=== PATIENT | male | born 1990 | race Caucasian/White ===

== ENCOUNTER 2016-11-05 18:35 | Emergency (ER) | payer OTHER ==
--- NOTE | 2016-11-06 06:22 | ED NURSING NOTES ---
Clinical Report - Nurses [place] [address] [place] [address] 11/05/2016 18:38 Patient: JOHN LIU DISPOSITION / DISCHARGE Departure time: 1937. The patient left the Emergency Department before triage. ( emissions testing technician brought me the chart while I was triaging another pt and told me that registration called and told him that the patient had left.). --06:21 Bang Basilio R.N. Locked/Released at 11/06/2016 6:22 by Bang Basilio R.N.
--- NOTE | 2016-11-06 06:22 | ED NURSING NOTES ---
Clinical Report - Nurses [place] [address] [place] [address] 11/05/2016 18:38 Patient: JOHN LIU DISPOSITION / DISCHARGE Departure time: 1937. The patient left the Emergency Department before triage. ( certified endoscopy technician brought me the chart while I was triaging another pt and told me that registration called and told him that the patient had left.). --06:21 Bang Basilio R.N. Locked/Released at 11/06/2016 6:22 by Bang Basilio R.N.
== END 2016-11-05 19:38 | disposition home or self-care (01) ==
LOC: ED SRH 18:35
DX: Z53.21 Procedure and treatment not carried out due to patient leaving prior to being seen by health care provider (principal)

== ENCOUNTER 2017-01-16 16:05 | Emergency (ER) | payer OTHER ==
--- NOTE | 2017-01-16 16:34 | ED NURSING NOTES ---
Clinical Report - Nurses [facility] [address] [place] [address] 01/16/2017 16:07 Patient: JOHN LIU TRIAGE Triage time 16:13. Acuity: LEVEL 5. Chief Complaint: TOOTHACHE and CHIPPED TOOTH. Alert. --16:18 Jaqueline Hernandez R.N. 16:13 01/16/17. BP: 135/77. HR: 104. RR: 18. O2 saturation: 98%. --16:18 Jaqueline Hernandez R.N. 16:20 01/16/17. Temp: 98.5 F. Pain level now: 08/09. --16:20 Jaqueline Hernandez R.N. Chief Complaint: (Pt stated that he had a toothache 3 months ago and had a round of antibiotics, then a week ago, it flared up again. He plans on having the tooth pulled.). --16:33 Jaqueline Hernandez R.N. Weight: 72.5 kg stated. Height/Length: 66 inches Per Patient. BMI: 25.8. --16:18 Jaqueline Hernandez R.N. Medications Ibuprofen Oral 1200 mg 5 times a day. --16:15 Jaqueline Hernandez R.N. Allergies No Known Drug Allergy. --16:16 Jaqueline Hernandez R.N. History Arrived by private vehicle. Historian: patient. Primary physician ([facility]). Onset. (1 week ago, finished Amoxicillin). SOCIAL HX: Heavy tobacco smoker (cigarette)- 1 pack per day. Occasional alcohol use. No drug use. --16:18 Jaqueline Hernandez R.N. PROBLEMS: Crush Injury, Upper Extremity. Contusion. Laceration. Pityriasis Rosea. Lifestyle / Substance Problems. Pharyngitis. Sinusitis. Skin Avulsion. Sprain. PTSD. --16:17 Jaqueline Hernandez R.N. ADDITIONAL SURGERIES: Hand. Knee Surgery. Shoulder Surgery. --16:17 Jaqueline Hernandez R.N. Interventions ID band on patient. To room. --16:18 Jaqueline Hernandez R.N. PHYSICAL ASSESSMENT 16:18 01/16/17. GENERAL / NEURO / PSYCH: Alert. Oriented X 4. --16:18 Jaqueline Hernandez R.N. GENERAL / NEURO / PSYCH: ( Pt states it's the left lower molar, in front of wisdom tooth). --16:20 Jaqueline Hernandez R.N. NURSING PROGRESS NOTES 16:21 01/16/17. Patient identifiers checked. Call light placed in reach. Bed placed in lowest position. Brakes of bed on. Patient ready for evaluation- chart flagged. --16:21 Jaqueline Hernandez R.N. DISPOSITION / DISCHARGE Departure time: 1640. Condition at departure: improved. ( VSs deferred). No learning barriers present. Discharge instructions provided and reviewed with the patient. Reviewed medication(s) information. Prescription(s) given to the patient. Reviewed referral to a dentist. Verbalized understanding. Written instructions provided. The patient was discharged home. He left the Emergency Department ambulatory and via private vehicle. FALL RISK ASSESSMENT: Fall risk assessment completed. No fall risk identified. --17:05 Jaqueline Hernandez R.N. Locked/Released at 01/19/2017 17:05 by Jaqueline Hernandez R.N.
--- NOTE | 2017-01-16 16:34 | ED NURSING NOTES ---
Clinical Report - Nurses [facility] [address] [place] [address] 01/16/2017 16:07 Patient: JOHN LIU TRIAGE Triage time 16:13. Acuity: LEVEL 5. Chief Complaint: TOOTHACHE and CHIPPED TOOTH. Alert. --16:18 Jaqueline Hernandez R.N. 16:13 01/16/17. BP: 135/77. HR: 104. RR: 18. O2 saturation: 98%. --16:18 Jaqueline Hernandez R.N. 16:20 01/16/17. Temp: 98.5 F. Pain level now: 08/09. --16:20 Jaqueline Hernandez R.N. Chief Complaint: (Pt stated that he had a toothache 3 months ago and had a round of antibiotics, then a week ago, it flared up again. He plans on having the tooth pulled.). --16:33 Jaqueline Hernandez R.N. Weight: 72.5 kg stated. Height/Length: 66 inches Per Patient. BMI: 25.8. --16:18 Jaqueline Hernandez R.N. Medications Ibuprofen Oral 1200 mg 5 times a day. --16:15 Jaqueline Heranndez R.N. Allergies No Known Drug Allergy. --16:16 Jaqueline Hernandez R.N. History Arrived by private vehicle. Historian: patient. Primary physician ([facility]). Onset. (1 week ago, finished Amoxicillin). SOCIAL HX: Heavy tobacco smoker (cigarette)- 1 pack per day. Occasional alcohol use. No drug use. --16:18 Jaqueline Hernandez R.N. PROBLEMS: Crush Injury, Upper Extremity. Contusion. Laceration. Pityriasis Rosea. Lifestyle / Substance Problems. Pharyngitis. Sinusitis. Skin Avulsion. Sprain. PTSD. --16:17 Jaqueline Hernandez R.N. ADDITIONAL SURGERIES: Hand. Knee Surgery. Shoulder Surgery. --16:17 Jaqueline Hernandez R.N. Interventions ID band on patient. To room. --16:18 Jaqueline Hernandez R.N. PHYSICAL ASSESSMENT 16:18 01/16/17. GENERAL / NEURO / PSYCH: Alert. Oriented X 4. --16:18 Jaqueline Hernandez R.N. GENERAL / NEURO / PSYCH: ( Pt states it's the left lower molar, in front of wisdom tooth). --16:20 Jaqueline Hernandez R.N. NURSING PROGRESS NOTES 16:21 01/16/17. Patient identifiers checked. Call light placed in reach. Bed placed in lowest position. Brakes of bed on. Patient ready for evaluation- chart flagged. --16:21 Jaqueline Hernandez R.N. DISPOSITION / DISCHARGE Departure time: 1640. Condition at departure: improved. ( VSs deferred). No learning barriers present. Discharge instructions provided and reviewed with the patient. Reviewed medication(s) information. Prescription(s) given to the patient. Reviewed referral to a dentist. Verbalized understanding. Written instructions provided. The patient was discharged home. He left the Emergency Department ambulatory and via private vehicle. FALL RISK ASSESSMENT: Fall risk assessment completed. No fall risk identified. --17:05 Jaqueline Hernandez R.N. Locked/Released at 01/19/2017 17:05 by Jaqueline Hernandez R.N.
--- NOTE | 2017-01-16 16:34 | ED CLINICAL REPORT ---
Clinical Report - Physicians/Mid Levels [facility] [address] [place] [address] 01/16/2017 16:07 Patient: JOHN LIU Time Seen: 16:13; upon arrival, initial patient contact, initial documentation, patient care assumed. Arrived- By private vehicle. Historian- patient. HISTORY OF PRESENT ILLNESS Chief Complaint: DENTAL PAIN. This started about 1 weeks ago and is still present. No sore throat, mouth sores, nasal discharge or congestion or ear pain. He has had moderate toothache involving a single tooth (left lower molar). Similar symptoms previously: Frequently, as bad. ( was on round of pcn abx about 3 mos ago for same tooth, was supposed to f/u with dentist to have dental work done, and didn't). Recent medical care: Not recently seen/assessed. REVIEW OF SYSTEMS No fever or difficulty breathing. All systems otherwise negative, except as recorded above. PAST HISTORY See nurses notes. PROBLEMS: Crush Injury, Upper Extremity. Contusion. Laceration. Pityriasis Rosea. Lifestyle / Substance Problems. Pharyngitis. Sinusitis. Skin Avulsion. Sprain. PTSD. --16:17 Jaqueline Hernandez R.N. ADDITIONAL SURGERIES: Hand. Knee Surgery. Shoulder Surgery. --16:17 Jaqueline Hernandez RToby. SOCIAL HISTORY Heavy tobacco smoker. Occasional alcohol use. No drug use. No recent travel. Is a local resident. FAMILY HISTORY Negative. ADDITIONAL NOTES The nursing notes have been reviewed with agreement regarding the chief complaint, HPI, ROS, PMH and patient medications and allergies. PHYSICAL EXAM Vital Signs: 01/16/2017 16:13 BP: 135/77. HR: 104. RR: 18. O2 saturation: 98%. Have been reviewed as normal and appear to be correct. Temperature: 98.5 oral- temperature normal. Appearance: Alert. No acute distress. Head: Normal external inspection. Eyes: Pupils equal, round and reactive to light. Conjunctivae and eyelids normal. ENT: Mild, localized dental decay (lower left second molar) (part of tooth gone and decay present). No gingival tenderness, induration, swelling or fluctuance. Ears normal. Nose normal. Trismus present. Pharynx normal. Lips normal. Gums normal. Uvula midline. Neck: Normal inspection. Trachea midline. No adenopathy. Thyroid normal. Neck supple. Respiratory: No respiratory distress. Skin: Normal skin color. No rash. Normal skin turgor. Extremities: Extremities exhibit normal ROM. Extremities nontender. Neuro: Oriented X 3. No motor deficit. No sensory deficit. PROGRESS AND PROCEDURES Course of Care: 16:34 01/16/17. pt has brief kellie, nothing alarming, see report for full details. Patient counseled in person regarding the patient's stable condition and diagnosis. Differential Diagnosis: Other possible considerations: substance abuse, dental caries, abscess, pain. Above considerations are based on history and physical exam. Differential diagnosis was discussed with patient. Disposition: Discharged home in good and unchanged condition (16:34). Condition: good and stable. CLINICAL IMPRESSION Dental caries (localized) INSTRUCTIONS Warnings: GENERAL WARNINGS: Return or contact your physician immediately if your condition worsens or changes unexpectedly, if not improving as expected, or if other problems arise. Specifically return if problem worsens. Prescription Medications: Penicillin V 500mg: take 1 tab orally every 6 hours for 10 days. Dispense forty (40). No refill Ultram 50 mg tablets: take 1-2 orally every 6 hours as needed for pain. Dispense twenty (20). No refills. Substitution is permissible. Follow-up: Follow up with a dentist in about three days even if well. Call for an appointment. Summary of care provided to patient. Understanding of the discharge instructions verbalized by patient. (Electronically signed by Adelaida Naranjo A.R.N.P. 01/17/2017 0:05)
--- NOTE | 2017-01-19 17:06 | ED MED RECONCILIATION SUMMARY ---
Patient: JOHN LIU Medication Reconciliation Report [facility] VisitID: [id number] [address] [place] [address] 26y, M Registration Date/Time: 01/16/2017 Weight: 72.5 kg Height/Length: 66 in. BMI: 25.8 ALLERGIES: No Known Drug Allergy The patient's Home Medications are listed below: THE FOLLOWING MEDICATIONS NEED TO BE RECONCILED: Ibuprofen Oral 1200 mg 5 times a day The source(s) of the original Home Medication information: Not obtained. The following Medications were given to the patient in the Emergency Department: None. The following Medications were prescribed to the patient: Penicillin V 500mg: take 1 tab orally every 6 hours for 10 days. Dispense forty (40). No refill -- Adelaida Naranjo A.R.N.P. Ultram 50 mg tablets: take 1-2 orally every 6 hours as needed for pain. Dispense twenty (20). No refills. Substitution is permissible. -- Adelaida Naranjo A.R.N.P.
--- NOTE | 2017-01-19 17:06 | ED DISCHARGE INSTRUCTIONS ---
Patient: JOHN LIU General Instructions [facility] VisitID: [id number] [place] [address] 26y, M Registration Date/Time: 01/16/2017 Dental caries (localized) INSTRUCTIONS Warnings: GENERAL WARNINGS: Return or contact your physician immediately if your condition worsens or changes unexpectedly, if not improving as expected, or if other problems arise. Specifically return if problem worsens. Prescription Medications: Penicillin V 500mg: take 1 tab orally every 6 hours for 10 days. Dispense forty (40). No refill Ultram 50 mg tablets: take 1-2 orally every 6 hours as needed for pain. Dispense twenty (20). No refills. Substitution is permissible. Follow-up: Follow up with a dentist in about three days even if well. Call for an appointment. Summary of care provided to patient. Understanding of the discharge instructions verbalized by patient. ADDITIONAL INFORMATION Dental Cavity A dental cavity is a pit or crater in the enamel surface of the tooth. This exposes the sensitive inner layer of the tooth and causes pain. If untreated, the cavity will get bigger and may cause an infection or abscess in the root of the tooth. An infection in the tooth is a much more serious problem and may require a root canal or removal of the entire tooth. The tooth pain may be made worse by drinking hot or cold fluids. It may spread from the tooth to the ear or jaw on the same side. Home Care: Avoid hot and cold foods, and liquids since your tooth may be sensitive to temperature changes. If your tooth is chipped or cracked, or if there is a large open cavity, apply OIL OF CLOVES (available vjwj-jlo-mobijks in drug stores) directly to the tooth to reduce pain. Some pharmacies carry an rsqc-vfh-tufvoiy "toothache kit." This contains oil of cloves and a paste, which can be applied over the exposed tooth to decrease sensitivity. An ice pack on your jaw over the sore area may help to reduce pain. You may use acetaminophen (Tylenol) or ibuprofen (Motrin, Advil) to control pain, unless another pain medicine was prescribed. [ NOTE: If you have liver disease or ever had a stomach ulcer, talk with your doctor before using these medicines.] If you have signs of an infection, an antibiotic will be given. Take it as directed. Follow-Up with your dentist as directed. Although your pain may go away with the treatment given, only a dentist can fully evaluate and treat this problem to prevent further tooth damage. Get Prompt Medical Attention if any of the following occur: Redness or swelling of the face Pain worsens or spreads to the neck Fever over 100.5 F (38C) Unusual drowsiness; headache or stiff neck; weakness or fainting Pus drains from the tooth or gum Difficulty swallowing or breathing Dental Pain A crack or cavity in the tooth, which exposes the sensitive inner area of the tooth can cause tooth pain. An infection in the gum or the root of the tooth can cause pain and swelling. The pain is often made worse by drinking hot or cold fluids, or biting on hard foods. Pain may spread from the tooth to the ear or jaw on the same side. Home Care: Avoid hot and cold foods and liquids since your tooth may be sensitive to temperature changes. If your tooth is chipped or cracked, or if there is a large open cavity, apply OIL OF CLOVES (available weov-pwo-telnvie in drug stores) directly to the tooth to reduce pain. Some pharmacies carry an wlza-fkx-hndndhh "toothache kit." This contains a paste, which can be applied over the exposed tooth to decrease sensitivity. A cold pack on your jaw over the sore area may help reduce pain. You may use acetaminophen (Tylenol) or ibuprofen (Motrin, Advil) to control pain, unless another medicine was prescribed. [ NOTE: If you have chronic liver or kidney disease or ever had a stomach ulcer or GI bleeding, talk with your doctor before using these medicines.] If you have signs of an infection, an antibiotic will be given. Take it as directed. Follow-Up as directed with a dentist. Your pain may go away with the treatment given. However, only a dentist can fully evaluate and treat the cause and prevent the pain from coming back again. TOOTHACHE IS A SIGN OF DISEASE IN YOUR TOOTH AND SHOULD BE EXAMINED AND TREATED BY A DENTIST. Get Prompt Medical Attention if any of the following occur: Your face becomes swollen or red Pain worsens or spreads to the neck Fever over 100.4 F (38.0 C) Unusual drowsiness; headache or stiff neck; weakness or fainting Pus drains from the tooth Difficulty swallowing or breathing Penicillin V Potassium Oral tablet What is this medicine? PENICILLIN V (pen i SILL in V) is a penicillin antibiotic. It is used to treat certain kinds of bacterial infections. It will not work for colds, flu, or other viral infections. How should I use this medicine? Take this medicine by mouth with a full glass of water. Follow the directions on the prescription label. Take your medicine at regular intervals. Do not take your medicine more often than directed. Take all of your medicine as directed even if you think your are better. Do not skip doses or stop your medicine early. Talk to your plaster foreman regarding the use of this medicine in children. While this drug may be prescribed for selected conditions, precautions do apply. What side effects may I notice from receiving this medicine? Side effects that you should report to your doctor or health healthcare or medical as soon as possible: allergic reactions like skin rash or hives, swelling of the face, lips, or tongue breathing problems fever new symptoms of infection redness, blistering, peeling or loosening of the skin, including inside the mouth unusually weak or tired Side effects that usually do not require medical attention (report to your doctor or health healthcare or medical if they continue or are bothersome): diarrhea headache nausea, vomiting sore mouth or tongue stomach upset What may interact with this medicine? control pills methotrexate other antibiotics probenecid some vaccines What if I miss a dose? If you miss a dose, take it as soon as you can. If it is almost time for your next dose, take only that dose. Do not take double or extra doses. Where should I keep my medicine? Keep out of the reach of children. Store at room temperature between 15 and 30 degrees C (59 and 86 degrees F). Keep container tightly closed. Throw away any unused medicine after the expiration date. What should I tell my health care provider before I take this medicine? They need to know if you have any of these conditions: asthma bowel disease, like colitis eczema kidney disease an unusual or allergic reaction to penicillin, cephalosporins, other antibiotics or medicines, foods, tartrazine or other dyes, or preservatives or trying to get breast-feeding What should I watch for while using this medicine? Tell your doctor or health healthcare or medical if your symptoms do not improve. Do not treat diarrhea with over the counter products. Contact your doctor if you have diarrhea that lasts more than 2 days or if it is severe and watery. If you have diabetes, you may get a false-positive result for sugar in your urine. Check with your doctor or health healthcare or medical. control pills may not work properly while you are taking this medicine. Talk to your doctor about using an extra method of control. Tramadol Hydrochloride Oral tablet What is this medicine? TRAMADOL (TRA ma dole) is a pain reliever. It is used to treat moderate to severe pain in adults. How should I use this medicine? Take this medicine by mouth with a full glass of water. Follow the directions on the prescription label. If the medicine upsets your stomach, take it with food or milk. Do not take more medicine than you are told to take. Talk to your plaster foreman regarding the use of this medicine in children. Special care may be needed. What side effects may I notice from receiving this medicine? Side effects that you should report to your doctor or health healthcare or medical as soon as possible: allergic reactions like skin rash, itching or hives, swelling of the face, lips, or tongue breathing difficulties, wheezing confusion itching light headedness or fainting spells redness, blistering, peeling or loosening of the skin, including inside the mouth seizures Side effects that usually do not require medical attention (report to your doctor or health healthcare or medical if they continue or are bothersome): constipation dizziness drowsiness headache nausea, vomiting What may interact with this medicine? Do not take this medicine with any of the following medications: MAOIs like Carbex, Eldepryl, Marplan, Nardil, and Parnate This medicine may also interact with the following medications: alcohol or medicines that contain alcohol antihistamines benzodiazepines bupropion carbamazepine or oxcarbazepine clozapine cyclobenzaprine digoxin furazolidone linezolid medicines for depression, anxiety, or psychotic disturbances medicines for migraine headache like almotriptan, eletriptan, frovatriptan, naratriptan, rizatriptan, sumatriptan, zolmitriptan medicines for pain like pentazocine, buprenorphine, butorphanol, meperidine, nalbuphine, and propoxyphene medicines for sleep muscle relaxants naltrexone phenobarbital phenothiazines like perphenazine, thioridazine, chlorpromazine, mesoridazine, fluphenazine, prochlorperazine, promazine, and trifluoperazine procarbazine warfarin What if I miss a dose? If you miss a dose, take it as soon as you can. If it is almost time for your next dose, take only that dose. Do not take double or extra doses. Where should I keep my medicine? Keep out of the reach of children. Store at room temperature between 15 and 30 degrees C (59 and 86 degrees F). Keep container tightly closed. Throw away any unused medicine after the expiration date. What should I tell my health care provider before I take this medicine? They need to know if you have any of these conditions: brain tumor depression drug abuse or addiction head injury if you frequently drink alcohol containing drinks kidney disease or trouble passing urine liver disease lung disease, asthma, or breathing problems seizures or epilepsy suicidal thoughts, plans, or attempt; a previous suicide attempt by you or a family member an unusual or allergic reaction to tramadol, codeine, other medicines, foods, dyes, or preservatives or trying to get breast-feeding What should I watch for while using this medicine? Tell your doctor or health healthcare or medical if your pain does not go away, if it gets worse, or if you have new or a different type of pain. You may develop tolerance to the medicine. Tolerance means that you will need a higher dose of the medicine for pain relief. Tolerance is normal and is expected if you take this medicine for a long time. Do not suddenly stop taking your medicine because you may develop a severe reaction. Your body becomes used to the medicine. This does NOT mean you are addicted. Addiction is a behavior related to getting and using a drug for a non-medical reason. If you have pain, you have a medical reason to take pain medicine. Your doctor will tell you how much medicine to take. If your doctor wants you to stop the medicine, the dose will be slowly lowered over time to avoid any side effects. You may get drowsy or dizzy. Do not drive, use machinery, or do anything that needs mental alertness until you know how this medicine affects you. Do not stand or sit up quickly, especially if you are an older patient. This reduces the risk of dizzy or fainting spells. Alcohol can increase or decrease the effects of this medicine. Avoid alcoholic drinks. You may have constipation. Try to have a bowel movement at least every 2 to 3 days. If you do not have a bowel movement for 3 days, call your doctor or health healthcare or medical. Your mouth may get dry. Chewing sugarless gum or sucking hard candy, and drinking plenty of water may help. Contact your doctor if the problem does not go away or is severe. You have been given the following additional information: Dental Cavity Dental Pain Penicillin V Potassium Oral tablet Tramadol Hydrochloride Oral tablet (Electronically signed by Adelaida Naranjo A.R.NJennaPJenna 01/17/2017 0:05)
--- NOTE | 2017-01-19 17:06 | ED MAR SUMMARY ---
..... Medication Administration Record [facility] [address] [place], [place] [id number] Patient: JOHN LIU Visit ID: [id number] 26y, M Weight: 72.5 kg Height/Length: 66 in BMI: 25.8 ALLERGIES: No Known Drug Allergy
--- NOTE | 2017-01-19 17:06 | ED MAR SUMMARY ---
..... Medication Administration Record [facility] [address] [place], [place] [id number] Patient: JOHN LIU Visit ID: [id number] 26y, M Weight: 72.5 kg Height/Length: 66 in BMI: 25.8 ALLERGIES: No Known Drug Allergy
--- NOTE | 2017-01-19 17:06 | ED MED RECONCILIATION SUMMARY ---
Patient: JOHN LIU Medication Reconciliation Report [facility] VisitID: [id number] [address] [place] [address] 26y, M Registration Date/Time: 01/16/2017 Weight: 72.5 kg Height/Length: 66 in. BMI: 25.8 ALLERGIES: No Known Drug Allergy The patient's Home Medications are listed below: THE FOLLOWING MEDICATIONS NEED TO BE RECONCILED: Ibuprofen Oral 1200 mg 5 times a day The source(s) of the original Home Medication information: Not obtained. The following Medications were given to the patient in the Emergency Department: None. The following Medications were prescribed to the patient: Penicillin V 500mg: take 1 tab orally every 6 hours for 10 days. Dispense forty (40). No refill -- Adelaida Naranjo A.R.N.P. Ultram 50 mg tablets: take 1-2 orally every 6 hours as needed for pain. Dispense twenty (20). No refills. Substitution is permissible. -- Adelaida Naranjo A.R.N.P.
--- NOTE | 2017-01-19 17:06 | ED DISCHARGE INSTRUCTIONS ---
Patient: JOHN LIU General Instructions [facility] VisitID: [id number] [place] [address] 26y, M Registration Date/Time: 01/16/2017 Dental caries (localized) INSTRUCTIONS Warnings: GENERAL WARNINGS: Return or contact your physician immediately if your condition worsens or changes unexpectedly, if not improving as expected, or if other problems arise. Specifically return if problem worsens. Prescription Medications: Penicillin V 500mg: take 1 tab orally every 6 hours for 10 days. Dispense forty (40). No refill Ultram 50 mg tablets: take 1-2 orally every 6 hours as needed for pain. Dispense twenty (20). No refills. Substitution is permissible. Follow-up: Follow up with a dentist in about three days even if well. Call for an appointment. Summary of care provided to patient. Understanding of the discharge instructions verbalized by patient. ADDITIONAL INFORMATION Dental Cavity A dental cavity is a pit or crater in the enamel surface of the tooth. This exposes the sensitive inner layer of the tooth and causes pain. If untreated, the cavity will get bigger and may cause an infection or abscess in the root of the tooth. An infection in the tooth is a much more serious problem and may require a root canal or removal of the entire tooth. The tooth pain may be made worse by drinking hot or cold fluids. It may spread from the tooth to the ear or jaw on the same side. Home Care: Avoid hot and cold foods, and liquids since your tooth may be sensitive to temperature changes. If your tooth is chipped or cracked, or if there is a large open cavity, apply OIL OF CLOVES (available eypx-qay-ipekgtn in drug stores) directly to the tooth to reduce pain. Some pharmacies carry an sqju-wjx-ldsggpy "toothache kit." This contains oil of cloves and a paste, which can be applied over the exposed tooth to decrease sensitivity. An ice pack on your jaw over the sore area may help to reduce pain. You may use acetaminophen (Tylenol) or ibuprofen (Motrin, Advil) to control pain, unless another pain medicine was prescribed. [ NOTE: If you have liver disease or ever had a stomach ulcer, talk with your doctor before using these medicines.] If you have signs of an infection, an antibiotic will be given. Take it as directed. Follow-Up with your dentist as directed. Although your pain may go away with the treatment given, only a dentist can fully evaluate and treat this problem to prevent further tooth damage. Get Prompt Medical Attention if any of the following occur: Redness or swelling of the face Pain worsens or spreads to the neck Fever over 100.5 F (38C) Unusual drowsiness; headache or stiff neck; weakness or fainting Pus drains from the tooth or gum Difficulty swallowing or breathing Dental Pain A crack or cavity in the tooth, which exposes the sensitive inner area of the tooth can cause tooth pain. An infection in the gum or the root of the tooth can cause pain and swelling. The pain is often made worse by drinking hot or cold fluids, or biting on hard foods. Pain may spread from the tooth to the ear or jaw on the same side. Home Care: Avoid hot and cold foods and liquids since your tooth may be sensitive to temperature changes. If your tooth is chipped or cracked, or if there is a large open cavity, apply OIL OF CLOVES (available fzcs-zvf-zqtvdsc in drug stores) directly to the tooth to reduce pain. Some pharmacies carry an ldda-shj-nlnavvb "toothache kit." This contains a paste, which can be applied over the exposed tooth to decrease sensitivity. A cold pack on your jaw over the sore area may help reduce pain. You may use acetaminophen (Tylenol) or ibuprofen (Motrin, Advil) to control pain, unless another medicine was prescribed. [ NOTE: If you have chronic liver or kidney disease or ever had a stomach ulcer or GI bleeding, talk with your doctor before using these medicines.] If you have signs of an infection, an antibiotic will be given. Take it as directed. Follow-Up as directed with a dentist. Your pain may go away with the treatment given. However, only a dentist can fully evaluate and treat the cause and prevent the pain from coming back again. TOOTHACHE IS A SIGN OF DISEASE IN YOUR TOOTH AND SHOULD BE EXAMINED AND TREATED BY A DENTIST. Get Prompt Medical Attention if any of the following occur: Your face becomes swollen or red Pain worsens or spreads to the neck Fever over 100.4 F (38.0 C) Unusual drowsiness; headache or stiff neck; weakness or fainting Pus drains from the tooth Difficulty swallowing or breathing Penicillin V Potassium Oral tablet What is this medicine? PENICILLIN V (pen i SILL in V) is a penicillin antibiotic. It is used to treat certain kinds of bacterial infections. It will not work for colds, flu, or other viral infections. How should I use this medicine? Take this medicine by mouth with a full glass of water. Follow the directions on the prescription label. Take your medicine at regular intervals. Do not take your medicine more often than directed. Take all of your medicine as directed even if you think your are better. Do not skip doses or stop your medicine early. Talk to your commercial energy rater regarding the use of this medicine in children. While this drug may be prescribed for selected conditions, precautions do apply. What side effects may I notice from receiving this medicine? Side effects that you should report to your doctor or health intensive care nurse as soon as possible: allergic reactions like skin rash or hives, swelling of the face, lips, or tongue breathing problems fever new symptoms of infection redness, blistering, peeling or loosening of the skin, including inside the mouth unusually weak or tired Side effects that usually do not require medical attention (report to your doctor or health intensive care nurse if they continue or are bothersome): diarrhea headache nausea, vomiting sore mouth or tongue stomach upset What may interact with this medicine? control pills methotrexate other antibiotics probenecid some vaccines What if I miss a dose? If you miss a dose, take it as soon as you can. If it is almost time for your next dose, take only that dose. Do not take double or extra doses. Where should I keep my medicine? Keep out of the reach of children. Store at room temperature between 15 and 30 degrees C (59 and 86 degrees F). Keep container tightly closed. Throw away any unused medicine after the expiration date. What should I tell my health care provider before I take this medicine? They need to know if you have any of these conditions: asthma bowel disease, like colitis eczema kidney disease an unusual or allergic reaction to penicillin, cephalosporins, other antibiotics or medicines, foods, tartrazine or other dyes, or preservatives or trying to get breast-feeding What should I watch for while using this medicine? Tell your doctor or health intensive care nurse if your symptoms do not improve. Do not treat diarrhea with over the counter products. Contact your doctor if you have diarrhea that lasts more than 2 days or if it is severe and watery. If you have diabetes, you may get a false-positive result for sugar in your urine. Check with your doctor or health intensive care nurse. control pills may not work properly while you are taking this medicine. Talk to your doctor about using an extra method of control. Tramadol Hydrochloride Oral tablet What is this medicine? TRAMADOL (TRA ma dole) is a pain reliever. It is used to treat moderate to severe pain in adults. How should I use this medicine? Take this medicine by mouth with a full glass of water. Follow the directions on the prescription label. If the medicine upsets your stomach, take it with food or milk. Do not take more medicine than you are told to take. Talk to your commercial energy rater regarding the use of this medicine in children. Special care may be needed. What side effects may I notice from receiving this medicine? Side effects that you should report to your doctor or health intensive care nurse as soon as possible: allergic reactions like skin rash, itching or hives, swelling of the face, lips, or tongue breathing difficulties, wheezing confusion itching light headedness or fainting spells redness, blistering, peeling or loosening of the skin, including inside the mouth seizures Side effects that usually do not require medical attention (report to your doctor or health intensive care nurse if they continue or are bothersome): constipation dizziness drowsiness headache nausea, vomiting What may interact with this medicine? Do not take this medicine with any of the following medications: MAOIs like Carbex, Eldepryl, Marplan, Nardil, and Parnate This medicine may also interact with the following medications: alcohol or medicines that contain alcohol antihistamines benzodiazepines bupropion carbamazepine or oxcarbazepine clozapine cyclobenzaprine digoxin furazolidone linezolid medicines for depression, anxiety, or psychotic disturbances medicines for migraine headache like almotriptan, eletriptan, frovatriptan, naratriptan, rizatriptan, sumatriptan, zolmitriptan medicines for pain like pentazocine, buprenorphine, butorphanol, meperidine, nalbuphine, and propoxyphene medicines for sleep muscle relaxants naltrexone phenobarbital phenothiazines like perphenazine, thioridazine, chlorpromazine, mesoridazine, fluphenazine, prochlorperazine, promazine, and trifluoperazine procarbazine warfarin What if I miss a dose? If you miss a dose, take it as soon as you can. If it is almost time for your next dose, take only that dose. Do not take double or extra doses. Where should I keep my medicine? Keep out of the reach of children. Store at room temperature between 15 and 30 degrees C (59 and 86 degrees F). Keep container tightly closed. Throw away any unused medicine after the expiration date. What should I tell my health care provider before I take this medicine? They need to know if you have any of these conditions: brain tumor depression drug abuse or addiction head injury if you frequently drink alcohol containing drinks kidney disease or trouble passing urine liver disease lung disease, asthma, or breathing problems seizures or epilepsy suicidal thoughts, plans, or attempt; a previous suicide attempt by you or a family member an unusual or allergic reaction to tramadol, codeine, other medicines, foods, dyes, or preservatives or trying to get breast-feeding What should I watch for while using this medicine? Tell your doctor or health intensive care nurse if your pain does not go away, if it gets worse, or if you have new or a different type of pain. You may develop tolerance to the medicine. Tolerance means that you will need a higher dose of the medicine for pain relief. Tolerance is normal and is expected if you take this medicine for a long time. Do not suddenly stop taking your medicine because you may develop a severe reaction. Your body becomes used to the medicine. This does NOT mean you are addicted. Addiction is a behavior related to getting and using a drug for a non-medical reason. If you have pain, you have a medical reason to take pain medicine. Your doctor will tell you how much medicine to take. If your doctor wants you to stop the medicine, the dose will be slowly lowered over time to avoid any side effects. You may get drowsy or dizzy. Do not drive, use machinery, or do anything that needs mental alertness until you know how this medicine affects you. Do not stand or sit up quickly, especially if you are an older patient. This reduces the risk of dizzy or fainting spells. Alcohol can increase or decrease the effects of this medicine. Avoid alcoholic drinks. You may have constipation. Try to have a bowel movement at least every 2 to 3 days. If you do not have a bowel movement for 3 days, call your doctor or health intensive care nurse. Your mouth may get dry. Chewing sugarless gum or sucking hard candy, and drinking plenty of water may help. Contact your doctor if the problem does not go away or is severe. You have been given the following additional information: Dental Cavity Dental Pain Penicillin V Potassium Oral tablet Tramadol Hydrochloride Oral tablet (Electronically signed by Adelaida Naranjo A.R.NJennaPJenna 01/17/2017 0:05)
== END 2017-01-16 16:40 | disposition home or self-care (01) ==
LOC: ED SRH 16:05
DX: K02.9 Dental caries, unspecified (principal); F17.200 Nicotine dependence, unspecified, uncomplicated

== ENCOUNTER 2017-04-26 22:01 | Emergency (ER) | payer OTHER ==
--- NOTE | 2017-04-27 02:18 | ED CLINICAL REPORT ---
Clinical Report - Physicians/Mid Levels [facility] [address] [place] [address] 04/26/2017 22:02 Patient: JOHN LIU Arrived- By private vehicle. HISTORY OF PRESENT ILLNESS Chief Complaint: SYNCOPE and and HYPERVENTILATION. The patient has recovered. This occurred today. Event was not witnessed. The patient felt faint, lost consciousness and collapsed. No seizure activity or incontinence. The patient had preceding symptoms of light-headedness (WITH MARKED HYPERVENTILATION). No preceding symptoms of nausea or chest pain. This did not occur while the patient was standing, when the patient was recumbent, after he had just stood up or during exertion. Had a single episode (One prior similar episode months ago. A few more in the last week.). The episode was brief. Currently he feels normal. No weakness currently. No nausea currently. No headache currently. Similar symptoms previously: Several times. REVIEW OF SYSTEMS No headache, chest pain, palpitations, abdominal pain or vomiting. No diarrhea, black stools, bloody stools, fever or sore throat. No difficulty breathing or difficulty with urination. PAST HISTORY ( PCP: None ADDITIONAL SURGERIES: Hand. Knee Surgery. Shoulder Surgery. Hosp: Illness: Anxiety and depression ILLNESS: Dental Caries. Crush Injury, Upper Extremity. Contusion. Laceration. Pityriasis Rosea. Lifestyle / Substance Problems. Pharyngitis. Sinusitis. Skin Avulsion. Sprain. PTSD.). ADDITIONAL NOTES The nursing notes have been reviewed. PHYSICAL EXAM Vital Signs: 04/27/2017 02:15 BP: 119/53. HR: 79. RR: 14. O2 saturation: 96%. Pain level now: 0. 04/27/2017 01:47 BP: 121/82. HR: 82. RR: 16. O2 saturation: 98%. Pain level now: 0. 04/27/2017 00:43 BP: 121/72. HR: 94. RR: 19. O2 saturation: 99%. 04/27/2017 00:41 BP: 118/68. HR: 73. RR: 18. O2 saturation: 98%. 04/27/2017 00:39 BP: 116/70. HR: 87. RR: 16. O2 saturation: 98%. Pain level now: 01/07. 04/26/2017 23:03 BP: 134/93. HR: 90. RR: 18. O2 saturation: 97%. Temp: 98.6 F. Appearance: Alert. No acute distress. Eyes: Pupils equal, round and reactive to light. No nystagmus. Extraocular movements normal. ENT: Normal ENT inspection. Moist mucous membranes. Pharynx normal. Neck: Normal inspection. Neck supple. CVS: Normal heart rate and rhythm. Respiratory: No respiratory distress. Breath sounds normal. Abdomen: Soft and nontender. Back: Normal inspection. Skin: Skin warm. Normal skin color. No rash. Extremities: Extremities exhibit normal ROM. No lower extremity edema. Neuro: Alert. Mood/affect normal. Speech normal. Cranial nerves normal (as tested). No motor deficit. No sensory deficit. LABS, X-RAYS, AND EKG Chest X-ray: Normal Chest X-Ray. (PROCEDURE: XR CHEST 1 VIEW INDICATION: SYNCOPE TECHNIQUE: Single view chest. 0029 hours COMPARISON: 01/25/2011 FINDINGS: The cardiopulmonary contour and central vasculature are stable, within normal limits. The lungs are clear without focal consolidation, pleural effusion or pneumothorax. The osseous structures are intact. IMPRESSION: 1. No evidence of acute cardiopulmonary disease. Dictated by: CARIE MARINO MD D: JCARLOS;04/27/17633 <Electronically signed by CARIE MARINO MD in OV> 04/27/17633). The X-rays were independently viewed by me and interpreted by the radiologist. Laboratory Tests: CBC w Diff: (JOSY: 04/27/2017 00:01) ( MsgRcvd 04/27/2017 00:37) Final results Test Result Flag Units (Reference) WHITE BLOOD COUNT 12.5 H K/uL (4.5-11.5) RED BLOOD COUNT 4.96 M/uL (4.50-5.90) HEMOGLOBIN 15.6 gm/dL (13.5-17.5) HEMATOCRIT 45.8 % (41.0-53.0) MEAN CELL VOLUME 93 fL (80-100) MEAN CORPUSCULAR HGB 32 pg (26-34) MEAN CORPUSCULAR HGB CONC 34 g/dL (31-37) RED CELL DISTRIBUTION WIDTH 13.3 % (11.6-14.8) PLATELET COUNT 268 K/uL (150-400) NEUTROPHIL % 67.1 % (50-75) LYMPH % 26.1 % (25-40) MONO % 6.1 % (3-14) EOSINOPHIL % 0.5 % (0-4) BASOPHIL % 0.2 % (0-2) [id number]: (JOSY: 04/27/2017 00:01) ( MsgRcvd 04/27/2017 00:43) Final results Test Result Flag Units (Reference) D-DIMER QUANTITATIVE < 0.27 L ug/mLFEU (0.27-0.52) The primary value of this quantitative assay relates toits negative predictive value (i.e. exclusion) of pulmonaryembolism/deep vein thrombosis/DIC.Elevated levels of d-dimer may also occur with:, age, cancer, inflammation, liver disease,post-op, infection, hematoma, coronary disease, peripheralarteriopathy, bleeding disorders and thrombolytic treatment.Results should be correlated with other clinical andradiological data.Testing Methodology: Latex Immunoassay CHEM 13 PANEL: (JOSY: 04/27/2017 00:01) ( MsgRcvd 04/27/2017 01:06) Final results Test Result Flag Units (Reference) GLUCOSE 84 mg/dL (70-110) BUN 11 mg/dL (7-18) CREATININE 1.0 mg/dL (0.6-1.3) Estimated GFR >60 mL/min Estimated GFR- >60 mL/min Note: Persistent reduction over 3 months in eGFR<60 mL/min/1.73 m2 defines CKD. Patients with eGFR values>=60 mL/min/1.73 m2 may also have CKD if evidence ofpersistent proteinuria. Additional information may be foundat www.kidney.org. SODIUM 139 mmol/L (136-145) POTASSIUM 3.5 mmol/L (3.5-5.1) CHLORIDE 102 mmol/L (98-107) CARBON DIOXIDE 30 mmol/L (21-32) CALCIUM 8.9 mg/dL (8.5-10.1) TOTAL PROTEIN 7.5 g/dL (6.4-8.2) ALBUMIN 4.4 g/dL (3.3-5.0) BILIRUBIN, TOTAL 0.3 mg/dL (0.0-1.0) ALKALINE PHOSPHATASE 93 U/L (46-116) AST (SGOT) 23 U/L (15-37) ALT (SGPT) 23 U/L (12-78) CPK 335 H U/L (24-260) MAGNESIUM 2.2 mg/dL (1.8-2.4) CK-MB 1.3 ng/mL (0.5-3.2) %CKMB 0.4 % (0.0-4.0) TROPONIN I <0.05 L ng/mL (0.00-1.5) TROPONIN REFERENCE RANGE:<0.1 NEGATIVE0.1-1.5 INDETERMINANT>1.5 POSITIVE . PROGRESS AND PROCEDURES Course of Care: Faint not chow start an\t pepres referal The most likely cause of this syncope episode is severe hyperventilation. There was no seizure. There was no headache to suggest ICH. There is no dysrhythmia, or evidence of hypovolemia. The Ddimer is negative there is no PE. 02:13 04/27/17. dispo. 04/27/2017 02:15 BP: 119/53. HR: 79. RR: 14. O2 saturation: 96%. Pain level now: 0. 04/27/2017 01:47 BP: 121/82. HR: 82. RR: 16. O2 saturation: 98%. Pain level now: . 04/27/2017 00:43 BP: 121/72. HR: 94. RR: 19. O2 saturation: 99%. 04/27/2017 00:41 BP: 118/68. HR: 73. RR: 18. O2 saturation: 98%. 04/27/2017 00:39 BP: 116/70. HR: 87. RR: 16. O2 saturation: 98%. Pain level now: 01/07. 04/26/2017 23:03 BP: 134/93. HR: 90. RR: 18. O2 saturation: 97%. Temp: 98.6 F. Disposition: Discharged. Condition: good. CLINICAL IMPRESSION Syncope. Acute hyperventilation syndrome Clinical picture does not suggest cerebrovascular accident, nontraumatic subarachnoid hemorrhagee, aortic aneurysm or dissection or arrhythmia. Clinical picture does not suggest myocardial infarction, pulmonary embolism, hypoglycemia, hypotension or volume depletion. Clinical picture does not suggest GI bleed. INSTRUCTIONS (YOU DO NOT HAVE A DANGEROUS CAUSE FOR THE FAINTING THE MOST LIKELY CAUSE WAS HYPERVENTILATION ESTABLISH PRIMARY CARE FOR HYPERVENTILATION EPISODES OR ANXIETY EPISODES DO SLOW SHALLOW BREATHING.). Prescription Medications: Prozac Caps 20 mg: take 1 orally every day. Dispense twenty-five (25). No refill. Substitution is permissible. Understanding of the discharge instructions verbalized by patient. Follow-up with: [facility], [facility], , [address] [place] [address] Follow up. Call for the next available appointment. (Electronically signed by Rob Mccullough MD 04/29/2017 14:45)
--- NOTE | 2017-04-27 02:18 | ED CLINICAL REPORT ---
Clinical Report - Physicians/Mid Levels [facility] [address] [place] [address] 04/26/2017 22:02 Patient: JOHN LIU Arrived- By private vehicle. HISTORY OF PRESENT ILLNESS Chief Complaint: SYNCOPE and and HYPERVENTILATION. The patient has recovered. This occurred today. Event was not witnessed. The patient felt faint, lost consciousness and collapsed. No seizure activity or incontinence. The patient had preceding symptoms of light-headedness (WITH MARKED HYPERVENTILATION). No preceding symptoms of nausea or chest pain. This did not occur while the patient was standing, when the patient was recumbent, after he had just stood up or during exertion. Had a single episode (One prior similar episode months ago. A few more in the last week.). The episode was brief. Currently he feels normal. No weakness currently. No nausea currently. No headache currently. Similar symptoms previously: Several times. REVIEW OF SYSTEMS No headache, chest pain, palpitations, abdominal pain or vomiting. No diarrhea, black stools, bloody stools, fever or sore throat. No difficulty breathing or difficulty with urination. PAST HISTORY ( PCP: None ADDITIONAL SURGERIES: Hand. Knee Surgery. Shoulder Surgery. Hosp: Illness: Anxiety and depression ILLNESS: Dental Caries. Crush Injury, Upper Extremity. Contusion. Laceration. Pityriasis Rosea. Lifestyle / Substance Problems. Pharyngitis. Sinusitis. Skin Avulsion. Sprain. PTSD.). ADDITIONAL NOTES The nursing notes have been reviewed. PHYSICAL EXAM Vital Signs: 04/27/2017 02:15 BP: 119/53. HR: 79. RR: 14. O2 saturation: 96%. Pain level now: 0. 04/27/2017 01:47 BP: 121/82. HR: 82. RR: 16. O2 saturation: 98%. Pain level now: 0. 04/27/2017 00:43 BP: 121/72. HR: 94. RR: 19. O2 saturation: 99%. 04/27/2017 00:41 BP: 118/68. HR: 73. RR: 18. O2 saturation: 98%. 04/27/2017 00:39 BP: 116/70. HR: 87. RR: 16. O2 saturation: 98%. Pain level now: 01/07. 04/26/2017 23:03 BP: 134/93. HR: 90. RR: 18. O2 saturation: 97%. Temp: 98.6 F. Appearance: Alert. No acute distress. Eyes: Pupils equal, round and reactive to light. No nystagmus. Extraocular movements normal. ENT: Normal ENT inspection. Moist mucous membranes. Pharynx normal. Neck: Normal inspection. Neck supple. CVS: Normal heart rate and rhythm. Respiratory: No respiratory distress. Breath sounds normal. Abdomen: Soft and nontender. Back: Normal inspection. Skin: Skin warm. Normal skin color. No rash. Extremities: Extremities exhibit normal ROM. No lower extremity edema. Neuro: Alert. Mood/affect normal. Speech normal. Cranial nerves normal (as tested). No motor deficit. No sensory deficit. LABS, X-RAYS, AND EKG Chest X-ray: Normal Chest X-Ray. (PROCEDURE: XR CHEST 1 VIEW INDICATION: SYNCOPE TECHNIQUE: Single view chest. 0029 hours COMPARISON: 01/25/2011 FINDINGS: The cardiopulmonary contour and central vasculature are stable, within normal limits. The lungs are clear without focal consolidation, pleural effusion or pneumothorax. The osseous structures are intact. IMPRESSION: 1. No evidence of acute cardiopulmonary disease. Dictated by: CARIE MARINO MD D: JCARLOS;04/27/17633 <Electronically signed by CARIE MARINO MD in OV> 04/27/17633). The X-rays were independently viewed by me and interpreted by the radiologist. Laboratory Tests: CBC w Diff: (JOSY: 04/27/2017 00:01) ( MsgRcvd 04/27/2017 00:37) Final results Test Result Flag Units (Reference) WHITE BLOOD COUNT 12.5 H K/uL (4.5-11.5) RED BLOOD COUNT 4.96 M/uL (4.50-5.90) HEMOGLOBIN 15.6 gm/dL (13.5-17.5) HEMATOCRIT 45.8 % (41.0-53.0) MEAN CELL VOLUME 93 fL (80-100) MEAN CORPUSCULAR HGB 32 pg (26-34) MEAN CORPUSCULAR HGB CONC 34 g/dL (31-37) RED CELL DISTRIBUTION WIDTH 13.3 % (11.6-14.8) PLATELET COUNT 268 K/uL (150-400) NEUTROPHIL % 67.1 % (50-75) LYMPH % 26.1 % (25-40) MONO % 6.1 % (3-14) EOSINOPHIL % 0.5 % (0-4) BASOPHIL % 0.2 % (0-2) [id number]: (JOSY: 04/27/2017 00:01) ( MsgRcvd 04/27/2017 00:43) Final results Test Result Flag Units (Reference) D-DIMER QUANTITATIVE < 0.27 L ug/mLFEU (0.27-0.52) The primary value of this quantitative assay relates toits negative predictive value (i.e. exclusion) of pulmonaryembolism/deep vein thrombosis/DIC.Elevated levels of d-dimer may also occur with:, age, cancer, inflammation, liver disease,post-op, infection, hematoma, coronary disease, peripheralarteriopathy, bleeding disorders and thrombolytic treatment.Results should be correlated with other clinical andradiological data.Testing Methodology: Latex Immunoassay CHEM 13 PANEL: (JOSY: 04/27/2017 00:01) ( MsgRcvd 04/27/2017 01:06) Final results Test Result Flag Units (Reference) GLUCOSE 84 mg/dL (70-110) BUN 11 mg/dL (7-18) CREATININE 1.0 mg/dL (0.6-1.3) Estimated GFR >60 mL/min Estimated GFR- >60 mL/min Note: Persistent reduction over 3 months in eGFR<60 mL/min/1.73 m2 defines CKD. Patients with eGFR values>=60 mL/min/1.73 m2 may also have CKD if evidence ofpersistent proteinuria. Additional information may be foundat www.kidney.org. SODIUM 139 mmol/L (136-145) POTASSIUM 3.5 mmol/L (3.5-5.1) CHLORIDE 102 mmol/L (98-107) CARBON DIOXIDE 30 mmol/L (21-32) CALCIUM 8.9 mg/dL (8.5-10.1) TOTAL PROTEIN 7.5 g/dL (6.4-8.2) ALBUMIN 4.4 g/dL (3.3-5.0) BILIRUBIN, TOTAL 0.3 mg/dL (0.0-1.0) ALKALINE PHOSPHATASE 93 U/L (46-116) AST (SGOT) 23 U/L (15-37) ALT (SGPT) 23 U/L (12-78) CPK 335 H U/L (24-260) MAGNESIUM 2.2 mg/dL (1.8-2.4) CK-MB 1.3 ng/mL (0.5-3.2) %CKMB 0.4 % (0.0-4.0) TROPONIN I <0.05 L ng/mL (0.00-1.5) TROPONIN REFERENCE RANGE:<0.1 NEGATIVE0.1-1.5 INDETERMINANT>1.5 POSITIVE . PROGRESS AND PROCEDURES Course of Care: Faint not chow start an\t pepres referal The most likely cause of this syncope episode is severe hyperventilation. There was no seizure. There was no headache to suggest ICH. There is no dysrhythmia, or evidence of hypovolemia. The Ddimer is negative there is no PE. 02:13 04/27/17. dispo. 04/27/2017 02:15 BP: 119/53. HR: 79. RR: 14. O2 saturation: 96%. Pain level now: 0. 04/27/2017 01:47 BP: 121/82. HR: 82. RR: 16. O2 saturation: 98%. Pain level now: . 04/27/2017 00:43 BP: 121/72. HR: 94. RR: 19. O2 saturation: 99%. 04/27/2017 00:41 BP: 118/68. HR: 73. RR: 18. O2 saturation: 98%. 04/27/2017 00:39 BP: 116/70. HR: 87. RR: 16. O2 saturation: 98%. Pain level now: 01/07. 04/26/2017 23:03 BP: 134/93. HR: 90. RR: 18. O2 saturation: 97%. Temp: 98.6 F. Disposition: Discharged. Condition: good. CLINICAL IMPRESSION Syncope. Acute hyperventilation syndrome Clinical picture does not suggest cerebrovascular accident, nontraumatic subarachnoid hemorrhagee, aortic aneurysm or dissection or arrhythmia. Clinical picture does not suggest myocardial infarction, pulmonary embolism, hypoglycemia, hypotension or volume depletion. Clinical picture does not suggest GI bleed. INSTRUCTIONS (YOU DO NOT HAVE A DANGEROUS CAUSE FOR THE FAINTING THE MOST LIKELY CAUSE WAS HYPERVENTILATION ESTABLISH PRIMARY CARE FOR HYPERVENTILATION EPISODES OR ANXIETY EPISODES DO SLOW SHALLOW BREATHING.). Prescription Medications: Prozac Caps 20 mg: take 1 orally every day. Dispense twenty-five (25). No refill. Substitution is permissible. Understanding of the discharge instructions verbalized by patient. Follow-up with: [facility], [facility], , [address] [place] [address] Follow up. Call for the next available appointment. (Electronically signed by Rbo Mccullough MD 04/29/2017 14:45)
--- NOTE | 2017-04-27 02:19 | ED NURSING NOTES ---
Clinical Report - Nurses [facility] [address] [place] [address] 04/26/2017 22:02 Patient: JOHN LIU TRIAGE Triage time 22:52 Jose 2016. Acuity: LEVEL 3. Chief Complaint: ANXIETY. 23:03 04/26/17. Alert. No acute distress. SEPSIS SCREEN: Sepsis Screen. Negative (no infection suspected/documented). SOLIS COMA SCORE: [place] Coma Scale: 15- eyes open spontaneously (4); best verbal response- oriented x 4 (5); best motor response- obeys commands (6). --23:03 Delia Ceballos 23:04/26/17. BP: 134/93. HR: 90. RR: 18. O2 saturation: 97%. Temp: 98.6 F. Pain level now 2/10. --23:03 Delia Ceballos 23:04/26/17. --23:05 Delia Ceballos. Weight: 68 kg stated. Height/Length: 67 inches Per Patient. BMI: 23.5. --22:57 Delia Ceballos. Medications None. --22:56 Delia Ceballos. Medication/allergy information source: the patient. --23:03 Delia Ceballos. Allergies No Known Drug Allergy. --22:56 Delia Ceballos. History Arrived by private vehicle. Historian: patient. Unaccompanied (does have someone that can pick him up if needed.). No primary care physician. Onset. (Tuesday). ( Pt reports that he was driving on Tuesday and had a multiple panic attacks. Pt reports that he has a history of panic attacks, usually brought on by stress. States that he passed out from an anxiety attack about 6 months ago, then hadn't until Tuesday. Since then there have been multiple episodes.). He has had anxiety. Has been feeling agitated. He has had sleeping difficulties (pre-existing.). 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 PAST MEDICAL HX: Hypertension. Anxiety. Psychiatric illness (PTSD). No history of diabetes mellitus. Immunizations: up-to-date. SOCIAL HX: Heavy tobacco smoker (cigarette)- 1 pack per day. Occasional alcohol use. History of heavy drug use: marijuana. FALL RISK ASSESSMENT: Fall risk assessment completed. No fall risk identified. NUTRITIONAL RISK ASSESSMENT: The nutritional risk assessment revealed no deficiencies. FUNCTIONAL ASSESSMENT: Functional assessment: no impairments noted. LEARNING NEEDS ASSESSMENT: The learning needs assessment revealed no barriers. SKIN INTEGRITY ASSESSMENT: Skin integrity risk assessment completed. No skin integrity risk identified. --23:03 Delia Ceballos SELF HARM ASSESSMENT: A self harm assessment was performed. The patient answered "yes" to the question "Have you recently felt down, depressed, or hopeless?" and "no" to the question "Do you have thoughts of harming or killing yourself?", "Are you here because you tried to hurt yourself?", "Have you ever tried to hurt yourself before today?" and "Have you recently had thoughts about harming or killing others?". The patient reports their behavior. --23:05 Delia Ceballos. PROBLEMS: Dental Caries. Crush Injury, Upper Extremity. Contusion. Laceration. Pityriasis Rosea. Lifestyle / Substance Problems. Pharyngitis. Sinusitis. Skin Avulsion. Sprain. PTSD. --22:56 Delia Ceballos. ADDITIONAL SURGERIES: Hand. Knee Surgery. Shoulder Surgery. --22:56 Delia Ceballos. Assessment The patient states feels the same. --23:03 Delia Ceballos. Interventions ID band on patient. --23:03 Delia Ceballos. PHYSICAL ASSESSMENT 23:04 04/26/17. Ambulatory to room. Patient gowned. GENERAL / NEURO / PSYCH: Alert. Oriented X 4. Appears in no acute distress. Speech within normal limits. Affect appears normal. Patient appears calm and cooperative. Good eye contact. Patient appears well-nourished and neat and clean. RESPIRATORY: Respirations not labored. CVS: Capillary refill less than 2 seconds. GI / : Abdomen soft and nontender. SKIN: Skin intact. Skin is warm and dry. Skin color is within normal limits. --23:04 Delia Ceballos. NURSING PROGRESS NOTES 23:04 04/26/17. The plan of care for this patient has been created. classroom monitor, pulse oximeter and NIBP monitor placed on patient; monitor alarms on. Patient gowned. Head of bed elevated. Reassurance given. Two patient identifiers checked. Call light placed in reach. Side rails up x 2. Bed placed in lowest position. Brakes of bed on. Patient ready for evaluation- chart flagged and ED physician notified. --23:04 Delia Ceballos EKG time: (2317). EKG was ordered, performed by a tech and shown to the ED physician. --23:31 sIaac Edwards, ER Hand Stripper 23:09 04/26/2017 Site #1 started via IV in the left antecubital space with an 20g angiocath, with aseptic technique and good blood return; one attempt. Blood drawn: rainbow set. Labeled in the presence of the patient and sent to the lab. Saline lock flushed with 10 mL saline. --00:39 Delia Ceballos 00:39 04/27/17. BP: 116/70 taken on the left arm, via an automated monitor, while lying. HR: 87 (regular, normal rate and strong). RR: 16 (regular, unlabored and normal). O2 saturation: 98%. Pain level now: 3/10. Additional comments: chest . --00:41 Deirdre Banda R.NJenna 00:41 04/27/17. BP: 118/68 taken on the left arm, via an automated monitor, while sitting. HR: 73 (regular, normal rate and strong). RR: 18 (regular, unlabored and normal). O2 saturation: 98% on room air. --00:43 Deirdre Banda R.NJenna 00:43 04/27/17. BP: 121/72 taken on the left arm, via an automated monitor, while standing. HR: 94 (regular, normal rate and strong). RR: 19 (regular, unlabored and normal). O2 saturation: 99% on room air. --00:43 Deirdre Banda R.NJenna 00:59 04/27/17. Care transferred and report given (Lakeisha, RN). --00:59 Delia Ceballos 01:54 04/27/17. ( Patient given coffee (ED MD varner)). --01:54 Lakeisha Bryson R.N. 01:47 04/27/17. BP: 121/82. HR: 82. RR: 16. O2 saturation: 98%. Temp: deferred. Pain level now: 0/10. --01:54 Lakeisha Bryson R.N. DISPOSITION / DISCHARGE 02:43. No learning barriers present. Discharge instructions provided and reviewed with the patient. Reviewed warnings. Reviewed medication(s). Treatments reviewed. Reviewed referrals. Patient verbalized understanding. Written instructions provided in Tuvaluan. The patient was discharged home. He left the Emergency Department ambulatory and via private vehicle. Patient driving. --02:49 Lakeisha Bryson R.N. 02:34 04/27/2017 Site #1 removed upon discharge. Manual pressure and bandaid applied. --02:49 Lakeisha Bryson R.N. 02:15 04/27/17. BP: 119/53 taken on the left arm, while sitting. HR: 79. RR: 14. O2 saturation: 96%. Temp: deferred. Pain level now: 0/10. --02:50 Lakeisha Bryson R.N. Locked/Released at 04/27/2017 2:50 by Lakeisha Bryson R.N.
--- NOTE | 2017-04-27 02:19 | ED ORDER SUMMARY ---
..... Patient: JOHN LIU OrderSheet [facility] VisitID: [id number] [address] [place] [address] 27y, M Registration Date/Time: 04/26/2017 ORDER SHEET Weight: 68.0 kg (stated) Allergies: No Known Drug Allergy GENERAL ORDERS: EKG - ER Stat (23:04 04/26/2017 Eldonuck per protocol) (Ack 23:08 ALawrence ER Tech1) (23:23 ALawrence ER Tech1) Chest 1V Urgent (00:18 04/27/2017 Angel DRAKE) (Ack 0:22 ALawrence ER Tech1) (0:33 GUnger) Necktie Turner (Continuous) (00:18 04/27/2017 Angel DRAKE) (Ack 0:22 ALawrence ER Tech1) (0:35 CFalkner R.N.) Cardiac Panel Stat (00:19 04/27/2017 Angel DRAKE) (Ack 0:22 ALawrence ER Tech1) (0:35 CFalkner R.N.) D-Dimer Urgent (00:19 04/27/2017 Angel DRAKE) (Ack 0:22 ALawrence ER Tech1) (0:35 CFalkner R.N.) Pulse oximeter (00:19 04/27/2017 Angel DRAEK) (Ack 0:22 ALawrence ER Tech1) (0:35 CFalkner R.N.) EKG - ER Stat (00:19 04/27/2017 Angel DRAKE) (Ack 0:22 ALawrence ER Tech1) (Cancelled: Duplicate Order0:23 ALawrence ER Tech1) Vitals - Orthostatic (00:19 04/27/2017 Angel DRAKE) (Ack 0:22 ALawrence ER Tech1) (0:44 CFalkner R.N.) MEDICATION ORDERS: IV FLUIDS: ORDER SHEET NOTES: [Electronically signed by Lakeisha Bryson R.N. (02:50 04/27/2017)] [Electronically signed by Rob Mccullough MD (14:45 04/29/2017)] [Electronically locked/signed by Lakeisha Bryson R.N. (02:50 04/27/2017)]
--- NOTE | 2017-04-27 02:19 | ED ORDER SUMMARY ---
..... Patient: JOHN LIU OrderSheet [facility] VisitID: [id number] [address] [place] [address] 27y, M Registration Date/Time: 04/26/2017 ORDER SHEET Weight: 68.0 kg (stated) Allergies: No Known Drug Allergy GENERAL ORDERS: EKG - ER Stat (23:04 04/26/2017 Eldonuck per protocol) (Ack 23:08 ALawrence ER Tech1) (23:23 ALawrence ER Tech1) Chest 1V Urgent (00:18 04/27/2017 Angel DRAKE) (Ack 0:22 ALawrence ER Tech1) (0:33 GUnger) Airport Operations Supervisor (Continuous) (00:18 04/27/2017 Angel DRAKE) (Ack 0:22 ALawrence ER Tech1) (0:35 CFalkner R.N.) Cardiac Panel Stat (00:19 04/27/2017 Angel DRAKE) (Ack 0:22 ALawrence ER Tech1) (0:35 CFalkner R.N.) D-Dimer Urgent (00:19 04/27/2017 Angel DRAKE) (Ack 0:22 ALawrence ER Tech1) (0:35 CFalkner R.N.) Pulse oximeter (00:19 04/27/2017 Angel DRAKE) (Ack 0:22 ALawrence ER Tech1) (0:35 CFalkner R.N.) EKG - ER Stat (00:19 04/27/2017 Angel DRAKE) (Ack 0:22 ALawrence ER Tech1) (Cancelled: Duplicate Order0:23 ALawrence ER Tech1) Vitals - Orthostatic (00:19 04/27/2017 Angel DRAKE) (Ack 0:22 ALawrence ER Tech1) (0:44 CFalkner R.N.) MEDICATION ORDERS: IV FLUIDS: ORDER SHEET NOTES: [Electronically signed by Lakeisha Bryson R.N. (02:50 04/27/2017)] [Electronically signed by Rob Mccullough MD (14:45 04/29/2017)] [Electronically locked/signed by Lakeisha Bryson R.N. (02:50 04/27/2017)]
--- NOTE | 2017-04-27 02:19 | ED NURSING NOTES ---
Clinical Report - Nurses [facility] [address] [place] [place] [address] 04/26/2017 22:02 Patient: JOHN LIU TRIAGE Triage time 22:52 Jose 2016. Acuity: LEVEL 3. Chief Complaint: ANXIETY. 23:03 04/26/17. Alert. No acute distress. SEPSIS SCREEN: Sepsis Screen. Negative (no infection suspected/documented). SOLIS COMA SCORE: [place] Coma Scale: 15- eyes open spontaneously (4); best verbal response- oriented x 4 (5); best motor response- obeys commands (6). --23:03 Delia Ceballos 23:04/26/17. BP: 134/93. HR: 90. RR: 18. O2 saturation: 97%. Temp: 98.6 F. Pain level now 2/10. --23:03 Delia Ceballos 23:04/26/17. --23:05 Delia Ceballos. Weight: 68 kg stated. Height/Length: 67 inches Per Patient. BMI: 23.5. --22:57 Delia Ceballos. Medications None. --22:56 Delia Ceballos. Medication/allergy information source: the patient. --23:03 Delia Ceballos. Allergies No Known Drug Allergy. --22:56 Delia Ceballos. History Arrived by private vehicle. Historian: patient. Unaccompanied (does have someone that can pick him up if needed.). No primary care physician. Onset. (Tuesday). ( Pt reports that he was driving on Tuesday and had a multiple panic attacks. Pt reports that he has a history of panic attacks, usually brought on by stress. States that he passed out from an anxiety attack about 6 months ago, then hadn't until Tuesday. Since then there have been multiple episodes.). He has had anxiety. Has been feeling agitated. He has had sleeping difficulties (pre-existing.). 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 PAST MEDICAL HX: Hypertension. Anxiety. Psychiatric illness (PTSD). No history of diabetes mellitus. Immunizations: up-to-date. SOCIAL HX: Heavy tobacco smoker (cigarette)- 1 pack per day. Occasional alcohol use. History of heavy drug use: marijuana. FALL RISK ASSESSMENT: Fall risk assessment completed. No fall risk identified. NUTRITIONAL RISK ASSESSMENT: The nutritional risk assessment revealed no deficiencies. FUNCTIONAL ASSESSMENT: Functional assessment: no impairments noted. LEARNING NEEDS ASSESSMENT: The learning needs assessment revealed no barriers. SKIN INTEGRITY ASSESSMENT: Skin integrity risk assessment completed. No skin integrity risk identified. --23:03 Delia Ceballos SELF HARM ASSESSMENT: A self harm assessment was performed. The patient answered "yes" to the question "Have you recently felt down, depressed, or hopeless?" and "no" to the question "Do you have thoughts of harming or killing yourself?", "Are you here because you tried to hurt yourself?", "Have you ever tried to hurt yourself before today?" and "Have you recently had thoughts about harming or killing others?". The patient reports their behavior. --23:05 Delia Ceballos. PROBLEMS: Dental Caries. Crush Injury, Upper Extremity. Contusion. Laceration. Pityriasis Rosea. Lifestyle / Substance Problems. Pharyngitis. Sinusitis. Skin Avulsion. Sprain. PTSD. --22:56 Delia Ceballos. ADDITIONAL SURGERIES: Hand. Knee Surgery. Shoulder Surgery. --22:56 Delia Ceballos. Assessment The patient states feels the same. --23:03 Delia Ceballos. Interventions ID band on patient. --23:03 Delia Ceballos. PHYSICAL ASSESSMENT 23:04 04/26/17. Ambulatory to room. Patient gowned. GENERAL / NEURO / PSYCH: Alert. Oriented X 4. Appears in no acute distress. Speech within normal limits. Affect appears normal. Patient appears calm and cooperative. Good eye contact. Patient appears well-nourished and neat and clean. RESPIRATORY: Respirations not labored. CVS: Capillary refill less than 2 seconds. GI / : Abdomen soft and nontender. SKIN: Skin intact. Skin is warm and dry. Skin color is within normal limits. --23:04 Delia Ceballos. NURSING PROGRESS NOTES 23:04 04/26/17. The plan of care for this patient has been created. child monitor, pulse oximeter and NIBP monitor placed on patient; monitor alarms on. Patient gowned. Head of bed elevated. Reassurance given. Two patient identifiers checked. Call light placed in reach. Side rails up x 2. Bed placed in lowest position. Brakes of bed on. Patient ready for evaluation- chart flagged and ED physician notified. --23:04 Delia Ceballos EKG time: (2317). EKG was ordered, performed by a tech and shown to the ED physician. --23:31 Isaac Edwards, ER Inserting Machine Operator 23:09 04/26/2017 Site #1 started via IV in the left antecubital space with an 20g angiocath, with aseptic technique and good blood return; one attempt. Blood drawn: rainbow set. Labeled in the presence of the patient and sent to the lab. Saline lock flushed with 10 mL saline. --00:39 Delia Ceballos 00:39 04/27/17. BP: 116/70 taken on the left arm, via an automated monitor, while lying. HR: 87 (regular, normal rate and strong). RR: 16 (regular, unlabored and normal). O2 saturation: 98%. Pain level now: 3/10. Additional comments: chest . --00:41 Deirdre Banda R.NJenna 00:41 04/27/17. BP: 118/68 taken on the left arm, via an automated monitor, while sitting. HR: 73 (regular, normal rate and strong). RR: 18 (regular, unlabored and normal). O2 saturation: 98% on room air. --00:43 Deirdre Banda R.NJenna 00:43 04/27/17. BP: 121/72 taken on the left arm, via an automated monitor, while standing. HR: 94 (regular, normal rate and strong). RR: 19 (regular, unlabored and normal). O2 saturation: 99% on room air. --00:43 Deirdre Banda R.NJenna 00:59 04/27/17. Care transferred and report given (Lakeisha, RN). --00:59 Delia Ceballos 01:54 04/27/17. ( Patient given coffee (ED MD varner)). --01:54 Lakeisha Bryson R.N. 01:47 04/27/17. BP: 121/82. HR: 82. RR: 16. O2 saturation: 98%. Temp: deferred. Pain level now: 0/10. --01:54 Lakeisha Bryson R.N. DISPOSITION / DISCHARGE 02:43. No learning barriers present. Discharge instructions provided and reviewed with the patient. Reviewed warnings. Reviewed medication(s). Treatments reviewed. Reviewed referrals. Patient verbalized understanding. Written instructions provided in Tanzanian. The patient was discharged home. He left the Emergency Department ambulatory and via private vehicle. Patient driving. --02:49 Lakeisha Bryson R.N. 02:34 04/27/2017 Site #1 removed upon discharge. Manual pressure and bandaid applied. --02:49 Lakeisha Bryson R.N. 02:15 04/27/17. BP: 119/53 taken on the left arm, while sitting. HR: 79. RR: 14. O2 saturation: 96%. Temp: deferred. Pain level now: 0/10. --02:50 Lakeisha Bryson R.N. Locked/Released at 04/27/2017 2:50 by Lakeisha Bryson R.N.
--- NOTE | 2017-04-27 06:34 | DIAGNOSTIC IMAGING REPORT ---
PROCEDURE: XR CHEST 1 VIEW INDICATION: SYNCOPE TECHNIQUE: Single view chest. 0029 hours COMPARISON: 01/25/2011 FINDINGS: The cardiopulmonary contour and central vasculature are stable, within normal limits. The lungs are clear without focal consolidation, pleural effusion or pneumothorax. The osseous structures are intact. IMPRESSION: 1. No evidence of acute cardiopulmonary disease.
--- NOTE | 2017-04-29 14:45 | ED MAR SUMMARY ---
..... Medication Administration Record [facility] [address] [place], [place] [id number] Patient: JOHN LIU Visit ID: [id number] 27y, M Weight: 68.0 kg Height/Length: 67 in BMI: 23.5 ALLERGIES: No Known Drug Allergy
--- NOTE | 2017-04-29 14:45 | ED MAR SUMMARY ---
..... Medication Administration Record [facility] [address] [place], [place] [id number] Patient: JOHN LIU Visit ID: [id number] 27y, M Weight: 68.0 kg Height/Length: 67 in BMI: 23.5 ALLERGIES: No Known Drug Allergy
--- NOTE | 2017-04-29 14:45 | ED DISCHARGE INSTRUCTIONS ---
Patient: JOHN LIU General Instructions [facility] VisitID: [id number] [place] [address] 27y, M Registration Date/Time: 04/26/2017 Syncope. Acute hyperventilation syndrome INSTRUCTIONS (YOU DO NOT HAVE A DANGEROUS CAUSE FOR THE FAINTING THE MOST LIKELY CAUSE WAS HYPERVENTILATION ESTABLISH PRIMARY CARE FOR HYPERVENTILATION EPISODES OR ANXIETY EPISODES DO SLOW SHALLOW BREATHING.). Prescription Medications: Prozac Caps 20 mg: take 1 orally every day. Dispense twenty-five (25). No refill. Substitution is permissible. Understanding of the discharge instructions verbalized by patient. Follow-up with: [facility] [place], , [address] [place] [address], [place] [id number] Follow up. Call for the next available appointment. ADDITIONAL INFORMATION Fainting:Uncertain Cause Fainting (syncope) is a temporary loss of consciousness ("passing out"). It occurs when blood flow to the brain is reduced. Near-fainting ("near-syncope") is very similar to fainting, but you do not fully "pass out". The common minor causes of fainting include: sudden fear, pain, nausea, emotional stress and overexertion. Suddenly standing up after sitting or lying for a long time can also cause fainting. The more serious causes for fainting are due to either a very slow or very fast or very slow heart beat ("arrhythmia"), other types of heart disease, dehydration, blood loss, seizure, stroke or ruptured blood vessel in the brain. Taking too much high blood pressure medicine can also cause low blood pressure and fainting. The exact cause of your episode is not certain. However, the tests today did not show any of the serious causes of fainting. Sometimes further testing is needed to find out if a serious problem exists. Therefore, it is important that you follow-up with your doctor as advised. Home Care: 1) Rest today. You may resume your normal activities when you are feeling back to normal. It is best to remain with someone who can check on you for the next 24 hours to watch for another episode of fainting. 2) If you become light-headed or dizzy, lie down immediately or sit with your head between your knees. 3) Because we do not know the exact cause of your near fainting spell, it is possible for another spell to occur without warning. Therefore, do not drive a car or operate dangerous equipment, do not take a bath alone (use a shower instead) and do not swim alone until your doctor says that you are no longer in danger of having another fainting spell. Follow Up with your doctor as advised. Get Prompt Medical Attention if any of the following occur: -- Another fainting spell occurs, which is not explained by the common causes listed above -- Chest, arm, neck, jaw, back or abdominal pain -- Shortness of breath -- Severe headache or seizure -- Blood in vomit, stools (black or red color) -- Unexpected vaginal bleeding -- Palpitations (very rapid or very slow or irregular heart beat) -- Signs of stroke: Weakness of an arm or leg or one side of the face Difficulty with speech or vision Extreme drowsiness, confusion, dizziness or fainting Hyperventilation Syndrome Hyperventilation Syndrome is a condition in which you lose control of your breathing. You may find yourself breathing too fast and/or too deep. This can be triggered by pain, anxiety and emotional stress. If hyperventilation continues for more than a few minutes, it can lead to a number of frightening symptoms, such as: Numbness and tingling of the hands, feet and face Clenching of the fingers or toes Dizziness Feeling like you cannot get enough air Chest pains Fainting or feeling like you are going to faint Once these symptoms begin, it is often hard to stop them because they lead to a cycle of more anxiety and more hyperventilation. It is important to understand that this is not a life-threatening condition and it will pass once you are able to relax. Relaxation and stress management methods can be learned and practiced in advance. These can help in the event of a future attack. Home Care: 1) Rest today until feeling back to normal. 2) If symptoms return: Sit or lie down. Remember that what is happening to you is temporary and will pass. Use the relaxation methods you have learned. It is no longer recommended to breathe into a paper bag. Follow Up with your doctor or as directed by our staff if symptoms recur. Get Prompt Medical Attention if any of the following occur: Increasing shortness of breath Fever of 100.0 F (38 C) or higher, or as directed by your healthcare provider Coughing up blood Chest pain that is made worse with each breath Redness, pain or swelling of the leg Ringing in your ears, Severe headache Weakness or fainting Stress Reaction Anxiety is the feeling we all get when we think something bad might happen. It is a normal response to stress and usually causes only a mild reaction. When anxiety becomes more severe, emotions may interfere with daily life. In some cases, you may not even be aware of what it is youre anxious about! During an anxiety reaction, you may feel like you are helpless, nervous, depressed or irritable. Your body may show signs of anxiety in many ways. You may experience dry mouth, shakiness, dizziness, weakness, trouble breathing, chest pressure, headache, nausea, diarrhea, tiredness, inability to sleep or sexual problems. Home Care: 1) Try to locate the sources of stress in your life. They may not be obvious! These may include: -- Daily hassles of life which pile up (traffic jams, missed appointments, car troubles, etc.) -- Major life changes, both good (new baby, job promotion) and bad (loss of job, loss of loved one) -- Overload: feeling that you have too many responsibilities and can't take care of all of them at once -- Feeling helpless, feeling that your problems are beyond what youre able to solve 2) Notice how your body reacts to stress. Learn to listen to your body signals. This will help you take action before the stress becomes severe. 3) When you can, do something about the source of your stress. (Avoid hassles, limit the amount of change that happens in your life at one time and take a break when you feel overloaded). 4) Unfortunately, many stressful situations cannot be avoided. It is necessary to learn HOW TO MANAGE STRESS better. There are many proven methods that will reduce your anxiety. These include simple things like exercise, good nutrition and adequate rest. Also, there are certain techniques that are helpful: relaxation and breathing exercises, visualization, biofeedback and meditation. For more information about this, consult your doctor or go to a local bookstore and review the many books and tapes available on this subject. Follow Up If you feel that your anxiety is not responding to self-help measures, contact your doctor or make an appointment with a counselor. Get Prompt Medical Attention if any of the following occur: -- Your symptoms get worse -- Chest pain or trouble breathing -- Severe headache not relieved by rest and mild pain reliever -- Rapid or irregular heartbeat, fainting You have been given the following additional information: Syncope, Unk Cause Hyperventilation Syndrome Anxiety Reaction (Electronically signed by Rob Mccullough MD 04/29/2017 14:45)
--- NOTE | 2017-04-29 14:45 | ED MED RECONCILIATION SUMMARY ---
Patient: JOHN LIU Medication Reconciliation Report [facility] VisitID: [id number] [address] [place] [address] 27y, M Registration Date/Time: 04/26/2017 Weight: 68.0 kg Height/Length: 67 in. BMI: 23.5 ALLERGIES: No Known Drug Allergy The patient's Home Medications are listed below: NONE. The source(s) of the original Home Medication information: patient The following Medications were given to the patient in the Emergency Department: None. The following Medications were prescribed to the patient: Prozac Caps 20 mg: take 1 orally every day. Dispense twenty-five (25). No refill. Substitution is permissible. -- Rob Mccullough MD
--- NOTE | 2017-04-29 14:45 | ED MED RECONCILIATION SUMMARY ---
Patient: JOHN LIU Medication Reconciliation Report [facility] VisitID: [id number] [address] [place] [address] 27y, M Registration Date/Time: 04/26/2017 Weight: 68.0 kg Height/Length: 67 in. BMI: 23.5 ALLERGIES: No Known Drug Allergy The patient's Home Medications are listed below: NONE. The source(s) of the original Home Medication information: patient The following Medications were given to the patient in the Emergency Department: None. The following Medications were prescribed to the patient: Prozac Caps 20 mg: take 1 orally every day. Dispense twenty-five (25). No refill. Substitution is permissible. -- Rob Mccullough MD
== END 2017-04-27 02:43 | disposition home or self-care (01) ==
LOC: ED SRH 22:01
DX: F45.8 Other somatoform disorders (principal)
CPT/HCPCS: 90100; 90616; 90617; 91556; 92610; 92720; 95059